=== PATIENT | male | born 1940 | race Caucasian/White ===

== ENCOUNTER → 2018-03-27 | Outpatient (CLI) | payer MEDICARE ==
--- NOTE | 2018-03-27 15:42 | KCIC ---
MR of the right shoulder HISTORY: Right shoulder pain and bursitis in recent months. TECHNIQUE: Routine multiplanar sequences are obtained. FINDINGS: The acromioclavicular joint is mildly degenerative with mild undersurface mass effect.. Small subacromial spur. Generalized rotator cuff tendinosis. Full-thickness rotator cuff tear of the supraspinatus tendon attachment measures about 1 cm AP diameter without retraction. Mild subdeltoid bursal fluid. Mild rotator cuff muscle atrophy. No significant glenohumeral joint effusion. No advanced primary osteoarthritis. Linear signal at the base of the superior labrum suspicious for a small degenerative tear. Biceps tendon is intact. No bone destruction or acute fracture. No acute soft tissue abnormality. IMPRESSION: 1. Small full-thickness tear of the supraspinatus tendon footplate without retraction. Generalized rotator cuff tendinosis. 2. Suspect small degenerative superior labral tear. 3. Acromioclavicular joint osteoarthritis. Electronically signed by: Constantine Cherry MD (03/27/2018 3:39 PM) [facility]
== END | disposition home or self-care (01) ==
LOC: KCIC MRI 12:53
PROVIDERS: ATTEND Family Medicine
DX: M19.011 Primary osteoarthritis, right shoulder (principal); M75.101 Unspecified rotator cuff tear or rupture of right shoulder, not specified as traumatic; M62.511 Muscle wasting and atrophy, not elsewhere classified, right shoulder; M75.81 Other shoulder lesions, right shoulder
CPT/HCPCS: 73221

== ENCOUNTER 2018-05-01 07:24 | Observation (INO) | payer MEDICARE ==
[~2018-05-01] VITALS: Ht 182.9 cm; Wt 98.5 kg
[2018-05-01] VITALS (9 sets, daily range): BP systolic 119–130; BP diastolic 66–76
[~2018-05-01 07:24] MED LIST: ASPI-630 PO; ATEN50TA PO; ATOR10TA60 PO; CETI10TA16 PO; HYDR-2765 PO; HYDR50TA6 PO; HYDROmorphone 2 MG/ML VIAL IV PRN; IV RINGERS,LACTATED 1000ML 1,000 ML IV SCH; LIDOCAINE 1% PF 2 ML VIAL. ID PRN; MORPHINE SULFATE 2 MG/ML VIAL. IV PRN; MV-M1CAP18 PO; NAPR-683 PO; OMEG1CAP28 PO; OMEP40CA5 PO; ONDANSETRON PF 4 MG/2 ML VIAL. IV PRN; PROCHLORPERAZINE 10 MG/2 ML VIAL. IV PRN; fentaNYL PF VIAL 100 MCG/2 ML VIAL IV PRN
[2018-05-01] MEDS ORDERED: ACETAMINOPHEN 325 MG TABLET. PO PRN (07:45)
[2018-05-01] MEDS ORDERED: CALCIUM CARBONATE 500 MG TAB.CHEW PO PRN (07:45)
[2018-05-01] MEDS ORDERED: DEXTROSE 50% 25 GM / 50ML DISP.SYRIN. IV PRN (07:45)
[2018-05-01] MEDS ORDERED: PROCHLORPERAZINE 5 MG TABLET. PO PRN (07:45)
[2018-05-01] MEDS ORDERED: METOCLOPRAMIDE HCL 10 MG/2 ML VIAL. IV PRN (07:45)
[2018-05-01] MEDS ORDERED: MORPHINE SULFATE 2 MG/ML VIAL. IV PRN (07:45)
[2018-05-01] MEDS ORDERED: ZOLPIDEM 5 MG TABLET. PO PRN (07:45)
[2018-05-01] MEDS ORDERED: traMADol 50 MG TABLET PO PRN ×2 (07:45)
[2018-05-01] MEDS ORDERED: oxyCODONE/APAP 7.5/325 1 TAB TABLET PO PRN (07:45)
[2018-05-01] MEDS ORDERED: 0.9 % SODIUM CHLORIDE 10 ML DISP.SYRIN. IV PRN (07:45)
[2018-05-01] MEDS ORDERED: ONDANSETRON PF 4 MG/2 ML VIAL. ONE (07:48)
[2018-05-01] MEDS ORDERED: DEXAMETHASONE SOD PHOS 20 MG/5 ML VIAL. ONE (07:48)
[2018-05-01] MEDS ORDERED: PROPOFOL 20 ML IV ONE (07:48)
[2018-05-01] MEDS ORDERED: PHENYLEPHRINE 10 MG/ML VIAL. ONE (07:48)
[2018-05-01] MEDS ORDERED: LIDOCAINE 2% PF 5 ML VIAL. ONE (07:48)
[2018-05-01] MEDS ORDERED: SEVOFLURANE 61 TO 120 MINUTES. IH ONE (07:48)
[2018-05-01] MEDS ORDERED: EPINEPHrine VIAL 30 MG/30 ML VIAL ONE (07:59)
[2018-05-01] MEDS ORDERED: LIDOCAINE 1% PF 30 ML VIAL. ONE (07:59)
[2018-05-01] MEDS ORDERED: BUPIVACAINE MPF 0.5% 30 ML VIAL. ONE (07:59)
[2018-05-01] MEDS ORDERED: GLYCOPYRROLATE 1 MG/5 ML VIAL. ONE (08:11)
[2018-05-01] MEDS ORDERED: ROPIVacaine 0.5% PF 20 ML VIAL. ONE ×2 (08:32→08:39)
[2018-05-01] MEDS ORDERED: MIDAZOLAM HCL/PF 2 MG/2 ML VIAL. ONE (08:32)
[2018-05-01] MEDS ORDERED: LIDOCAINE 1% PF 30 ML VIAL. INJ ONE (10:45)
[2018-05-01] MEDS ORDERED: BUPIVACAINE MPF 0.5% 30 ML VIAL. INJ ONE (10:45)
--- NOTE | 2018-05-01 11:00 | PDOC4 ---
Operative Note Operative Note Date of procedure: 05/01/2018 Surgeon: Yomi Paiz Online Marketer: Preoperative diagnosis: #1 Right shoulder rotator cuff tear #2 right shoulder biceps tendinitis Postoperative diagnosis: Same Procedure performed: #1 Arthroscopic right shoulder rotator cuff repair #2 open subpectoral biceps tenodesis Anesthesia: Gen. plus regional nerve block Findings: #1 He had some degenerative labral fraying, labrum was intact circumferentially #2 softening and glenoid cartilage, otherwise glenohumeral cartilage unremarkable #3 no loose bodies #4 near-complete 2 tendon tear of rotator cuff #5 biceps tendinitis Blood loss: 25mL Components inserted: Spence [employer] Nephew large Suturefix anchor for biceps tendodesis ; 2 Helacoil anchors for rotator cuff repair Reason for procedure: Patient is a very pleasant gentleman who has had chronic shoulder pain for years. Clinical and radiographic examination, including MRI were consistent with the preoperative diagnosis. He has tried physical therapy for several months as well as injections which only afforded him temporary relief. Because of his symptoms and dysfunction, we had a discussion of the risks, benefits, alternatives the above surgery and he wished to proceed. Description of procedure: Patient was greeted in the preoperative holding area where the correct extremity was verified and marked. They were taken to the preoperative holding area where the anesthesiology team placed a regional nerve block. The patient was then taken back to the operative suite and antibiotics were started as they were brought back. Once in the operative room, the patient was transferred gently supine to the operating room table after successful induction of a general anesthetic. After this, he was sat up in a beachchair position maintaining his C-spine in neutral position, large pad under his legs, he was secured to the bed. We then prepped and draped his right upper extremity and shoulder girdle in our usual sterile fashion, we conducted our standard preoperative timeout. I palpated and marked surface anatomy for my planned portal sites. I then used a spinal needle to localize a posterior superior portal and incised skin in accordance with this. After this, I introduced the blunt arthroscopic trocar into the glenohumeral joint followed by the camera. I used a spinal needle to localize an anterosuperior portal and incised skin in accordance with this. I then introduced my arthroscopic probe and conducted my diagnostic arthroscopy with the above-noted findings. After inspecting his biceps tendon and noting the pathology, and taking into account his physical examination, I elected to perform my biceps tenodesis next. I repositioned the arm after removing the arthroscopic instrumentation and palpated for the lower border of his pectoralis major tendon. I made a vertical incision through an axillary skin fold referencing the lower border of the pectoralis major tendon. I dissected subcutaneous cutaneous tissue and used a Metzenbaum to incise he fascia and bluntly dissected over the top of the humerus. I placed my 90 retractor taking care not to entrap the isodose tendon. I opened up the bicipital sheath and identified the tendon. I then placed my large suture fix anchor and passed the limbs through in a lasso type configuration with a bird beak passer. I then tied these down securely. I then clamped the biceps tendon proximal to my suture knots and transected the biceps tendon with a scalpel. I then repositioned the arm and introduce the camera into the glenohumeral joint again. After this, I used the Metzenbaums to release the biceps tendon from the labrum and the shaver to debride the stump. I then inspected his rotator cuff and noted some tendinosis type changes at the supraspinatus and infraspinatus and passed a PDS suture through using a spinal needle and retrieved it through the anterosuperior portal as well. I debrided some frayed tissue around the superior labrum. After this, I repositioned the camera into the subacromial space and performed a bursectomy with combination of shaver and electrocautery device. I then identified the rotator cuff tear and I debrided the pathologic tendon and prepared my footprint. I then placed my 2 helacoil anchors and shuttled limbs through in a simple configuration. I tied these down with arthroscopic knot-tying techniques. The tear was stable to probing and to gentle rotation of the arm. I then removed all loose bony debris and the excess arthroscopic fluid. I took my final pictures prior to this. After this, all the excess fluid and instrumentation was removed. The portals were closed with simple interrupted 3-0 nylon. Sterile dressing was applied followed by an abduction pillow sling. Patient tolerated surgery well. No complications. All counts correct 2 prior to wound closure. At the conclusion, he was laid supine and transferred gently supine to the recovery room cart and taken to the PACU in a stable and extubated condition. Postoperative plan is discharge him home, nonweightbearing for 6 weeks. Well get him started on physical therapy. He will follow up with me in 2 weeks, sooner should a problem arise. YOMI PAIZ II, MD May 01, 2018 11:00
--- NOTE | 2018-05-01 12:15 | NUR ---
Arrived to unit by bed from PACU. Alert and oriented x's 4. No c/o at this time. Right shoulder dressing d/i. Right arm in a Don Stephanie sling. Able to to wiggle fingers easily, warm to touch and radial pulse +. O2 at 2l per n/c. IVF's intact and infusing. DEBBIE's and SCD's on bilaterally. Oriented to room and controls. Side rails up x's 2 with call light in reach.
[2018-05-01] MEDS: NAPROXEN 500 MG TABLET PO SCH (17:00)
[2018-05-01] MEDS: IV DEXTROSE 5 %-0.45 % NACL 1,000 ML IV SCH ×2 (18:10→20:33)
[2018-05-01] MEDS ORDERED: ATORVASTATIN CALCIUM 10 MG TABLET. PO SCH (21:00)
[2018-05-01] MEDS: oxyCODONE/APAP 5/325 1 TAB TABLET PO PRN (22:03)
[2018-05-02 03:35] VITALS: BP 128/69
[2018-05-02] MEDS: oxyCODONE/APAP 5/325 1 TAB TABLET PO PRN ×2 (03:56→08:32)
[2018-05-02] MEDS ORDERED: MAGNESIUM HYDROXIDE 2,400 MG/30 ML ORAL.SUSP. PO PRN (06:00)
[2018-05-02 06:01] VITALS: BP 139/83
[2018-05-02] MEDS ORDERED: PANTOPRAZOLE 40 MG TABLET.DR. PO SCH (07:30)
--- NOTE | 2018-05-02 07:46 | DISCH ---
DISCHARGE WITH HOME HEALTH DISCHARGE INFORMATION: Discharge Date: May 02, 2018 Final Diagnosis: Right rotator cuff repair; biceps tenodesis Condition on Discharge: Stable CODE STATUS: Code Status: Full HOME HEALTH: Face to Face: I certify this patient is under my care and that I, or a nurse practitioner or physician's psychiatric assistant working with me, had a face to face encounter that meets the physician face to face encounter requirements with this patient on []. Medical Complications: Other Intermediate For: Assess & Educate Safety, Medication Management Physical Therapy For: Evalulation/Treatment Occupational Therapy For: Evaluation/Treatment Pt Meets Homebound Status: Unable to negotiate home POST DISCHARGE ORDERS: Activity Instructions for Disc: Other, see below (NWB RUE) Weight Bearing Status after Di: Non weight bearing Bathing Instructions: Shower-keep dressing dry DIET AFTER DISCHARGE: Regular Wound/Incision Care: Ice to area for comfort, Keep wound/cast CDI, Change dressing FOLLOW-UP: Follow up with: Carolyn in 2 wks TREATMENT/EQUIPMENT ORDERS: Adaptive Equipment Issued: None CERTIFICATION STATEMENT: Certification Statement: Certification Statement: Based on the above finding, I certify that this patient is confined to the home and needs intermittent fpc care, physical therapy and/or speech therapy, or continues to need occupational therapy.~ This patient is under my care, and I have initiated the establishment of the plan of care.~ This patient will be followed by myself or a community physician who will periodically review the plan of care. Home Meds Reported Medications Mv-Mn/Lutein/Zeax/Bilber/Hb277 (Macular Health Formula Capsule) 1 Each Capsule, 1 EACH PO DAILY for EYE VITAMINS, CAP 04/29/18 Naproxen (NAPROSYN) 500 Mg Tablet, 1 TAB PO BID for PAIN, #60 TAB 1 Refill 04/29/18 Hydrochlorothiazide (HYDROCHLOROTHIAZIDE TABLET) 50 Mg Tablet, 50 MG PO DAILY for DIURETIC, TAB 0 Refills 04/29/18 Atenolol (ATENOLOL) 50 Mg Tablet, 1 TAB PO DAILY for HYPERTENSION, #30 TAB 5 Refills 04/29/18 Cetirizine Hcl (CETIRIZINE HCL) 10 Mg Tablet, 1 TAB PO DAILY for ALLERGY, #30 TAB 5 Refills 04/29/18 Omeprazole (OMEPRAZOLE) 40 Mg Capsule.dr, 1 CAP PO DAILY for GERD, #30 CAP 3 Refills 04/29/18 Atorvastatin Calcium (ATORVASTATIN CALCIUM) 10 Mg Tablet, 1 TAB PO QHS for HIGH CHOLESTEROL, #30 TAB 5 Refills 04/29/18 Hydrocodone Bit/Acetaminophen (HYDROCODONE-APAP 7.5-325 ) 1 Tab Tablet, 1 TAB PO PRN Q6HRS PRN for PAIN, TAB 0 Refills 04/29/18 Matheny-3 Fatty Acids/Fish Oil (FISH OIL 1,200 MG SOFTGEL) 1 Each Capsule, 1 EACH PO DAILY for SUPPLEMENT, CAP 04/29/18 Aspirin (ASPIRIN) 81 Mg Tab.chew, 1 TAB PO DAILY for HELP HEART, #30 TAB 3 Refills 04/29/18 LAURA PAIZ II, MD May 02, 2018 07:46
--- NOTE | 2018-05-02 07:48 | PDOC ---
ORTHO PROGRESS NOTES Subjective Pain tolerable, fingers still a little numb. Had a sore throat, resolved. Vitals Vital Signs Date Time Temp Pulse Resp B/P (MAP) Pulse Ox O2 Delivery O2 Flow Rate FiO2 05/02/18 06:01 98.4 73 18 139/83 (101) 96 Room Air 2.0 98.4 Notes A and A in bed RUE in sling, motor intact m/r/u Assessment and Plan Home with C today tiago, NWB x 6 wks LAURA PAIZ II, MD May 02, 2018 07:48
[2018-05-02 08:25] VITALS: BP 123/63
[2018-05-02] MEDS: NAPROXEN 500 MG TABLET PO SCH (08:26)
[2018-05-02 08:27] VITALS: BP 123/63
[2018-05-02] MEDS ORDERED: ATENOLOL 50 MG TABLET. PO SCH (09:00)
[2018-05-02] MEDS ORDERED: SENNOSIDES/DOCUSATE 8.6/50MG TABLET. PO SCH (09:00)
[2018-05-02] MEDS ORDERED: CETIRIZINE HCL 10 MG TABLET. PO SCH (09:00)
[2018-05-02] MEDS ORDERED: ASPIRIN CHEWABLE 81 MG TABLET. PO SCH (09:00)
[2018-05-02] MEDS ORDERED: hydroCHLOROthiazide 25 MG TABLET PO SCH (09:00)
[2018-05-02] MEDS ORDERED: MULTIVITAMIN with MINERAL TABLET. PO SCH (09:00)
[2018-05-02] MEDS ORDERED: OMEGA-3 FATTY ACIDS/FISH OIL 1,000 MG CAPSULE. PO SCH (09:00)
--- NOTE | 2018-05-02 12:51 | NUR ---
Discharge instructions given with follow up to Dr. Leon as scheduled, see instruction sheet for details, provided dressing change supplies, medi special service officer & ice bag
--- NOTE | 2018-05-02 13:18 | NUR ---
Discharged to home per w/c accompanied by friends, belongings taken with him
[2018-05-02] MEDS ORDERED: BISACODYL 10 MG SUPP.RECT. PR PRN (16:00)
== END 2018-05-02 13:19 | disposition home health service (06) ==
LOC: SURG 07:24 → 4 SOUTHEST 12:12
PROVIDERS: ADMIT Orthopaedic Surgery Sports Medicine; ATTEND Orthopaedic Surgery Sports Medicine
PROC: 0LQ10ZZ Repair Right Shoulder Tendon, Open Approach (ICD-10-PCS; principal; 2018-05-01 09:05)
DX: M75.21 Bicipital tendinitis, right shoulder (principal); M75.101 Unspecified rotator cuff tear or rupture of right shoulder, not specified as traumatic; Z98.890 Other specified postprocedural states; M19.011 Primary osteoarthritis, right shoulder; M67.921 Unspecified disorder of synovium and tendon, right upper arm
CPT/HCPCS: 23430; 29827; 96365; 96366; 97166; A7015; C1782; C1876; G0378; G0379; G8987; G8988; J0171; J0696; J1100; J2001; J2250; J2405; J2704; J2795; J3490

== ENCOUNTER → 2018-05-20 | Outpatient (CLI) | payer MEDICARE ==
[2018-05-02 08:27] VITALS: BP 123/63
[~2018-05-20] MED LIST changes: +FURO-69 PO; -HYDROmorphone 2 MG/ML VIAL IV PRN; -IV RINGERS,LACTATED 1000ML 1,000 ML IV SCH; -LIDOCAINE 1% PF 2 ML VIAL. ID PRN; -MORPHINE SULFATE 2 MG/ML VIAL. IV PRN; -ONDANSETRON PF 4 MG/2 ML VIAL. IV PRN; +POTA10TA12 PO; -PROCHLORPERAZINE 10 MG/2 ML VIAL. IV PRN; -fentaNYL PF VIAL 100 MCG/2 ML VIAL IV PRN
--- NOTE | 2018-05-20 15:34 | KCIC ---
TESTICULAR/SCROTUM: 05/20/2018 3:00 PM INDICATION: 78 years old Male. Swelling of the testicles with testicular pain on the left side.. COMPARISON: None. FINDINGS: Grayscale, color Doppler and spectral waveform analysis were utilized. Right: Testicle: Normal in echotexture without focal lesion. Few microcalcifications are present. Size: 3.7 x 3.0 x 2.9 cm. Flow: Normal color Doppler flow pattern. Epididymis: Normal in size and echotexture without focal lesion. Hydrocele: None. Varicocele: None. Left: Testicle: Normal in echotexture without focal lesion. Few microvascular calcific effusions are present. Size: 4.4 x 2.9 x 3.4 cm. Flow: Normal color Doppler flow pattern. Epididymis: Normal in size and echotexture without focal lesion. Hydrocele: Small. Varicocele: None. IMPRESSION: Perfusion is noted in the testicles bilaterally at the time of imaging. No suspicious mass or inflammation is identified. Electronically signed by: Olive Bae MD (05/20/2018 3:31 PM) [id number]
== END | disposition home or self-care (01) ==
LOC: KCIC US 14:30
PROVIDERS: ATTEND Family Medicine
DX: N43.3 Hydrocele, unspecified (principal)
CPT/HCPCS: 76870

== ENCOUNTER 2018-06-03 12:58 | Emergency (ER) | payer MEDICARE ==
[~2018-06-03] VITALS: Ht 182.9 cm; Wt 97.1 kg
[~2018-06-03 12:58] MED LIST changes: -FURO-69 PO; -POTA10TA12 PO
--- NOTE | 2018-06-03 14:55 | PHYS DOC ---
Past Medical History Past Medical History: DVT, High Cholesterol, Hypertension, Other Additional Past Medical Histor: back fracture Past Surgical History: Appendectomy, Other Additional Past Surgical Histo: bilateral shoulder, hernia repair, left nephrectomy Alcohol Use: Rarely Drug Use: None Adult General Chief Complaint Chief Complaint: LOWER EXTREMITY SWELLING [facility] HPI Patient is a 78 year old male who presents with complaint of left lower extremity and testicular edema. Patient states he had left upper extremity surgery on May 09 and since then has had progressive edema of left lower extremity and left testicle. Patient states he was seen by his doctor and had u nremarkable ultrasound of testicle and left lower extremity 2 weeks ago and treated with some antibiotic without improvement of his condition. Patient complaining of chronic shortness of breath without change, fever and chills, nausea and vomiting, problem with his urination. Patient states he had history of left lower extremity DVT previously. Review of Systems Review of Systems Constitutional: Denies fever or chills [] Eyes: Denies change in visual acuity, redness, or eye pain [] HENT: Denies nasal congestion or sore throat [] Respiratory: Denies cough or shortness of breath [] Cardiovascular: No additional information not addressed in HPI [] GI: Denies abdominal pain, nausea, vomiting, bloody stools or diarrhea [] : Denies dysuria or hematuria [] Musculoskeletal: Denies back pain, reports joint pain [] Integument: Denies rash, reports edema Neurologic: Denies headache, focal weakness or sensory changes [] Endocrine: Denies polyuria or polydipsia [] All other systems were reviewed and found to be within normal limits, except as documented in this note. Allergies Allergies Allergies Coded Allergies Type Severity Reaction Last Updated Verified shrimp Allergy Severe SPICED SHRIMP - ANAPHYLAXIS 05/01/18 Yes lisinopril Allergy Intermediate CONFUSION 05/01/18 Yes duloxetine Allergy Mild SLEEPINESS 05/01/18 Yes Physical Exam Physical Exam Constitutional: Well developed, well nourished, mild distress, non-toxic appearance. [] HENT: Normocephalic, atraumatic Eyes: PERRLA, EOMI, conjunctiva normal, no discharge. [] Neck: Normal range of motion, no tenderness, supple, no stridor. [] Cardiovascular:Heart rate regular rhythm, no murmur [] Lungs & Thorax: Bilateral breath sounds clear to auscultation [] Abdomen: Bowel sounds normal, soft, no tenderness, no masses, no pulsatile masses. Left testicle with increasing size as twice as right side with hydroce le without tenderness or sign of infection[] Skin: Warm, dry, no erythema, no rash. [] Back: No tenderness, no CVA tenderness. [] Extremities: Left lower extremity with trace edema normal neurovascular evaluation without positive Steel sign, right upper extremity in immobilizer Neurologic: Alert and oriented X 3, normal motor function, normal sensory function, no focal deficits noted. [] Psychologic: Affect normal, judgement normal, mood normal. [] Current Patient Data Vital Signs Vital Signs Date Time Temp Pulse Resp B/P (MAP) Pulse Ox O2 Delivery O2 Flow Rate FiO2 06/03/18 13:50 98.9 63 20 140/70 (93) 95 Room Air 98.9 Lab Values Laboratory Tests Test 06/03/18 15:06 White Blood Count 6.1 x10^3/uL (4.0-11.0) Red Blood Count 3.79 x10^6/uL (4.30-5.70) L Hemoglobin 11.1 g/dL (13.0-17.5) L Hematocrit 33.2 % (39.0-53.0) L Mean Corpuscular Volume 88 fL (79-100) Mean Corpuscular Hemoglobin 29 pg (25-35) Mean Corpuscular Hemoglobin Concent 34 g/dL (31-37) Red Cell Distribution Width 14.5 % (11.5-14.5) Platelet Count 239 x10^3/uL (140-400) Neutrophils (%) (Auto) 48 % (31-73) Lymphocytes (%) (Auto) 31 % (24-48) Monocytes (%) (Auto) 14 % (0-9) H Eosinophils (%) (Auto) 6 % (0-3) H Basophils (%) (Auto) 1 % (0-3) Neutrophils # (Auto) 2.9 x10^3uL (1.8-7.7) Lymphocytes # (Auto) 1.9 x10^3/uL (1.0-4.8) Monocytes # (Auto) 0.9 x10^3/uL (0.0-1.1) Eosinophils # (Auto) 0.3 x10^3/uL (0.0-0.7) Basophils # (Auto) 0.1 x10^3/uL (0.0-0.2) Sodium Level 137 mmol/L (136-145) Potassium Level 3.5 mmol/L (3.5-5.1) Chloride Level 100 mmol/L (98-107) Carbon Dioxide Level 27 mmol/L (21-32) Anion Gap 10 (6-14) Blood Urea Nitrogen 22 mg/dL (8-26) Creatinine 1.2 mg/dL (0.7-1.3) Estimated GFR (Cockcroft-Gault) 58.4 BUN/Creatinine Ratio 18 (6-20) Glucose Level 118 mg/dL (70-99) H Calcium Level 9.1 mg/dL (8.5-10.1) Total Bilirubin 0.6 mg/dL (0.2-1.0) Aspartate Amino Transferase (AST) 20 U/L (15-37) Alanine Aminotransferase (ALT) 17 U/L (16-63) Alkaline Phosphatase 58 U/L (46-116) PO-Jcb-T-Type Natriuretic Peptide 711 pg/mL (0-449) H Total Protein 6.2 g/dL (6.4-8.2) L Albumin 3.6 g/dL (3.4-5.0) Albumin/Globulin Ratio 1.4 (1.0-1.7) Laboratory Tests 06/03/18 15:06 Laboratory Tests 06/03/18 15:06 EKG EKG [] Radiology/Procedures Radiology/Procedures [facility] [address] [place] [address] IMAGING REPORT Signed PATIENT: GENNA ESPINOZA ACCOUNT: [id number] : 1940 LOCATION: ER AGE: 78 SEX: M EXAM STATUS: REG ER ORD. PHYSICIAN: YASMIN CHAMPION MD REASON: edema PROCEDURE: TESTICULAR/SCROTUM Scrotal ultrasound HISTORY: Left testicle swelling FINDINGS: Right testicle measures 4.2 x 3.2 x 2.2 cm. Testicle vascularity appears within normal limits, with intact blood supply. Intratesticular microcalcifications are seen, without a large mass. Moderate right hydrocele. Right epididymis appears unremarkable. Left testicle measures 4.8 x 3.1 x 2.8 cm. Large left hydrocele. The left testicle demonstrates vascularity within normal limits, and intact blood supply, without a focal lesion. Intratesticular microcalcifications are seen. The left testicle is slightly heterogeneous, but without evidence of a dominant mass. Left epididymis appears unremarkable. IMPRESSION: 1. Moderate right and large left hydrocele. 2. Bilateral nonspecific intratesticular microcalcifications. 3. Slightly heterogeneous echogenicity of the left testicle, but without a dominant mass or focal hypervascularity. Electronically signed by: Constantine Cherry MD (06/03/2018 3:11 PM) [facility] DICTATED and SIGNED BY: CONSTANTINE CHERRY MD DATE: 06/03/18 1513 [facility] [address] [place] [address] IMAGING REPORT Signed PATIENT: GENNA ESPINOZA ACCOUNT: [id number] : 1940 LOCATION: ER AGE: 78 SEX: M EXAM STATUS: REG ER ORD. PHYSICIAN: YASMIN CHAMPION MD REASON: edema PROCEDURE: VENOUS LOWER EXTREMITY LEFT Left leg venous Doppler study: Clinical indications: Left leg swelling. Findings: Duplex sonography (including gage scale evaluation and color flow and waveform spectral analysis) of the proximal aspect of the greater saphenous vein and the proximal aspect of the profunda femoral vein and the entire length of the common femoral and superficial femoral and popliteal veins and the tibioperoneal trunk and the proximal aspect of the posterior tibial and peroneal veins of the left leg was performed. Normal compressibility, augmentation of color Doppler flow after calf compression, and respiratory variation of Doppler flow is seen. Thus, there are no sonographic findings of deep venous thrombosis within these veins. Impression: There are no sonographic findings of deep venous thrombosis within the veins discussed above of the left lower extremity. Electronically signed by: Yoana Wyatt MD (06/03/2018 3:06 PM) [facility] DICTATED and SIGNED BY: YOANA WYATT MD DATE: 06/03/18 1502 Course & Med Decision Making Course & Med Decision Making Pertinent Labs and Imaging studies reviewed. (See chart for details) Evaluation of patient in ER showed 78-year-old male patient with complaining of left testicular and lower extremity edema for a few weeks. Patient had a large hydrocele left testicle with 1+ edema bilateral lower extremity in the left si te. Labs showed elevation of BNP without sign of DVT. Ultrasound of testicles showed large hydrocele in the left side and moderate right side. Patient currently taking hydrochlorothiazide with plenty of liquids. Patient was advised to not take lots of liquids and follow-up with urologist and hims coder contact centre supervisor. Prescription for Lasix 20 mg and potassium 10 mg Valium was given. Dragon Disclaimer Dragon Disclaimer This electronic medical record was generated, in whole or in part, using a voice recognition dictation system. Departure Departure Impression: Primary Impression: Hydrocele, bilateral Additional Impressions: CHF (congestive heart failure) Extremity edema Anemia Disposition: HOME, SELF-CARE (at 1553) Condition: STABLE Referrals: MAREK SOLER MD (PCP) ALPESH GUNTER MD, VENKAT R MD Patient Instructions: Heart Failure Additional Instructions: Follow-up with urologist and hims coder in 2 or 3 days Follow-up with your primary care physician in 3-5 days Return to ER if not getting better Do not drink more than 4-6 cups of liquid a day Scripts Potassium Chloride (POTASSIUM CHLORIDE) 10 Meq Tab.sr.24h 10 MEQ PO DAILY, #30 TAB.SR Prov: YASMIN CHAMPION MD 06/03/18 Furosemide (LASIX) 20 Mg Tablet 1 TAB PO DAILY, #30 TAB 0 Refills Prov: YASMIN CHAMPION MD 06/03/18 Problem Qualifiers Additional Impressions: CHF (congestive heart failure) Heart failure type: unspecified Heart failure chronicity: unspecified Qualified Codes: I50.9 - Heart failure, unspecified Anemia Anemia type: unspecified type Qualified Codes: D64.9 - Anemia, unspecified YASMIN CHAMPION MD Jun 03, 2018 14:55
--- NOTE | 2018-06-03 15:09 | RAD ---
Left leg venous Doppler study: Clinical indications: Left leg swelling. Findings: Duplex sonography (including gage scale evaluation and color flow and waveform spectral analysis) of the proximal aspect of the greater saphenous vein and the proximal aspect of the profunda femoral vein and the entire length of the common femoral and superficial femoral and popliteal veins and the tibioperoneal trunk and the proximal aspect of the posterior tibial and peroneal veins of the left leg was performed. Normal compressibility, augmentation of color Doppler flow after calf compression, and respiratory variation of Doppler flow is seen. Thus, there are no sonographic findings of deep venous thrombosis within these veins. Impression: There are no sonographic findings of deep venous thrombosis within the veins discussed above of the left lower extremity. Electronically signed by: Thaddeus Wyatt MD (06/03/2018 3:06 PM) [facility]
--- NOTE | 2018-06-03 15:14 | RAD ---
Scrotal ultrasound HISTORY: Left testicle swelling FINDINGS: Right testicle measures 4.2 x 3.2 x 2.2 cm. Testicle vascularity appears within normal limits, with intact blood supply. Intratesticular microcalcifications are seen, without a large mass. Moderate right hydrocele. Right epididymis appears unremarkable. Left testicle measures 4.8 x 3.1 x 2.8 cm. Large left hydrocele. The left testicle demonstrates vascularity within normal limits, and intact blood supply, without a focal lesion. Intratesticular microcalcifications are seen. The left testicle is slightly heterogeneous, but without evidence of a dominant mass. Left epididymis appears unremarkable. IMPRESSION: 1. Moderate right and large left hydrocele. 2. Bilateral nonspecific intratesticular microcalcifications. 3. Slightly heterogeneous echogenicity of the left testicle, but without a dominant mass or focal hypervascularity. Electronically signed by: Constantine Cherry MD (06/03/2018 3:11 PM) [facility]
[2018-06-03 15:20] LABS: CALCIUM 9.1 mg/dL (8.5-10.1); CREATININE 1.2 mg/dL (0.7-1.3); GFR 58.4; POTASSIUM 3.5 mmol/L (3.5-5.1)
[2018-06-03 15:21] LABS: BASO # 0.1 x10^3/uL (0.0-0.2); BASO % 1 % (0-3); EOS # 0.3 x10^3/uL (0.0-0.7); EOS % 6 % (0-3); HEMATOCRIT 33.2 % (39.0-53.0); HEMOGLOBIN 11.1 g/dL (13.0-17.5); LYMPH # 1.9 x10^3/uL (1.0-4.8); LYMPH % 31 % (24-48); MEAN CORPUSCULAR HEMOGLOBIN 29 pg (25-35); MEAN CORPUSCULAR HGB CONC 34 g/dL (31-37); MEAN CORPUSCULAR VOLUME 88 fL (79-100); MONO # 0.9 x10^3/uL (0.0-1.1); MONO % 14 % (0-9); NEUT # 2.9 x10^3uL (1.8-7.7); NEUT % 48 % (31-73); PLATELET COUNT 239 x10^3/uL (140-400); RED BLOOD COUNT 3.79 x10^6/uL (4.30-5.70); RED CELL DISTRIBUTION WIDTH 14.5 % (11.5-14.5); WHITE BLOOD COUNT 6.1 x10^3/uL (4.0-11.0)
[2018-06-03 15:25] LABS: ALBUMIN 3.6 g/dL (3.4-5.0); ALBUMIN/GLOBULIN RATIO 1.4 (1.0-1.7); TOTAL BILIRUBIN 0.6 mg/dL (0.2-1.0); TOTAL PROTEIN 6.2 g/dL (6.4-8.2)
[2018-06-03 15:43] LABS: BILIRUBIN,URINE NEGATIVE (NEG); CLARITY,URINE CLEAR; COLOR,URINE YELLOW; NITRITE,URINE NEGATIVE (NEG); PH,URINE 6.5; PROTEIN,URINE NEGATIVE (NEG-TRACE)
[2018-06-03] MEDS ORDERED: POTA10TA12 PO (15:57)
[2018-06-03] MEDS ORDERED: FURO-69 PO (15:57)
[2018-06-03 16:09] LABS: BACTERIA,URINE 0 /HPF (0-FEW); RBC,URINE 0 /HPF (0-2); SQUAMOUS EPITHELIAL CELL,UR OCC /LPF; WBC,URINE OCC /HPF (0-4)
[2018-06-03 16:15] VITALS: BP 124/71
== END 2018-06-03 16:20 | disposition home or self-care (01) ==
LOC: ER 12:58
DX: I11.0 Hypertensive heart disease with heart failure (principal); I50.9 Heart failure, unspecified; D64.9 Anemia, unspecified; N43.3 Hydrocele, unspecified; R60.0 Localized edema; E78.00 Pure hypercholesterolemia, unspecified; Z86.718 Personal history of other venous thrombosis and embolism; Z98.890 Other specified postprocedural states; Z91.013 Allergy to seafood; Z88.8 Allergy status to other drugs, medicaments and biological substances
CPT/HCPCS: 36415; 76870; 80053; 81001; 83880; 85025; 93971; 99285-25

== ENCOUNTER → 2018-07-31 | Outpatient (CLI) | payer MEDICARE ==
[~2018-07-31] MED LIST changes: +FURO-69 PO; +POTA10TA12 PO
--- NOTE | 2018-07-31 15:24 | CARD ---
MR#: [id number] Date of Study: 07/31/2018 Ordering Physician: TANIA SMALL, Referring Physician: TANIA SMALL, Tech: Nancy Edwards APPROVED REPORT EXAM: Two-dimensional and M-mode echocardiogram with Doppler and color Doppler. Other Information Quality : GoodHR: 91bpm INDICATION Murmur Congestive Heart Failure RISK FACTORS Hypertension Hyperlipidemia 2D DIMENSIONS RVDd3.5 (2.9-3.5cm)Left Atrium(2D)3.7 (1.6-4.0cm) IVSd1.2 (0.7-1.1cm)Aortic Root(2D)3.5 (2.0-3.7cm) LVDd4.5 (3.9-5.9cm)LVOT Diameter2.2 (1.8-2.4cm) PWd1.0 (0.7-1.1cm)LVDs3.7 (2.5-4.0cm) FS (%) 19.3 %SV37.4 ml Aortic Valve AoV Peak Ghassan.98.6cm/sAoV VTI16.6cm AO Peak GR.3.9mmHgLVOT Peak Ghassan.82.9cm/s AO Mean GR.2mmHgAVA (VMAX)3.24cm2 AI P 1/2 Oumw511jh Pulmonary Valve PV Peak Zeviccab16.6cm/s Tricuspid Valve TR P. Yhfvvvge716os/sRAP AZCYDEYE2erIk TR Peak Gr.43ieFvQWMD86sdMy Pulmonary Vein S1 Ekldtupi95.0cm/sD2 Jirtjnbo83.6cm/s LEFT VENTRICLE The left ventricle is normal size. There is mild to moderate concentric left ventricular hypertrophy. The left ventricular systolic function is normal. The Ejection Fraction is 55%. There is normal LV s egmental wall motion. Diastology is indeterminate. RIGHT VENTRICLE The right ventricle is borderline dilated. There is normal right ventricular wall thickness. The righ t ventricular systolic function is normal. ATRIA The left atrium size is normal. The right atrium is mildly dilated. The interatrial septum is intact with no evidence for an atrial septal defect or patent foramen ovale as noted on 2-D or Doppler imagi ng. AORTIC VALVE The aortic valve is normal in structure and function. Doppler and Color Flow revealed mild aortic reg urgitation. There is no significant aortic valvular stenosis. MITRAL VALVE The mitral valve is normal in structure and function. There is no evidence of mitral valve prolapse. There is no mitral valve stenosis. Doppler and Color-flow revealed trace mitral regurgitation. TRICUSPID VALVE The tricuspid valve is normal in structure and function. Doppler and Color Flow revealed trace tricus pid regurgitation with an estimated PAP of 30 mmHg. There is no tricuspid valve stenosis. PULMONIC VALVE The pulmonary valve is normal in structure and function. Doppler and Color Flow revealed trace pulmon ic valvular regurgitation. GREAT VESSELS The aortic root is normal in size. The IVC is normal in size and collapses >50% with inspiration. PERICARDIAL EFFUSION There is no evidence of significant pericardial effusion. Critical Notification Critical Value: No <Conclusion> The left ventricular systolic function is normal. The Ejection Fraction is 55%. There is normal LV segmental wall motion. Mild aortic regurgitation. Trace mitral regurgitation. Trace tricuspid regurgitation with an estimated PAP of 30 mmHg. There is no evidence of significant pericardial effusion. Signed by : Angelito Hewitt, Electronically Approved : 07/31/2018 15:23:39
== END | disposition home or self-care (01) ==
LOC: ECHO 13:30
PROVIDERS: ATTEND Internal Medicine Cardiovascular Disease
DX: I35.1 Nonrheumatic aortic (valve) insufficiency (principal); I11.0 Hypertensive heart disease with heart failure; I50.9 Heart failure, unspecified; E78.5 Hyperlipidemia, unspecified
CPT/HCPCS: 93306